=== PATIENT | male | born 1995 | race Caucasian/White ===

== ENCOUNTER → 2023-06-25 11:57 | Outpatient (CLI) | payer OTHER, SELFPAY ==
[2023-06-25 13:07] LABS: Add Manual Diff / Slide Review NO; Basophils Absolute Auto 0 /uL (0-100); Basophils Percent Auto 0.4 % (0-2); Eosinophils Absolute Auto 200 /uL (0-450); Eosinophils Percent Auto 2.4 % (2-4); Hemoglobin 14.7 g/dL (13.5-17.5); Lymphocytes Absolute Auto 2400 /uL (1100-4500); Lymphocytes Percent Auto 29.4 % (25-40); Mean Corpuscular HGB Conc 34.2 % (30-36); Mean Corpuscular Hemoglobin 29.9 PG (26-34); Mean Corpuscular Volume 87.4 fL (80-100); Monocytes Absolute Auto 1000 /uL (0-900); Monocytes Percent Auto 11.5 % (3-14); Neutrophils Absolute Auto 4700 /uL (1500-7000); Neutrophils Percent Auto 56.3 % (50-75); Platelet Count 271 X10^3/uL (150-400); Red Blood Cell Count 4.92 X10^6/uL (4.5-5.9); Red Cell Distribution Width 13.2 % (11.6-14.8); White Blood Cell Count 8.3 X10^3/uL (4.5-11.0)
[2023-06-25 13:34] LABS: Alanine Aminotransferase 35 IU/L (<50); Albumin 4.8 g/dL (3.5-5.0); Albumin Globulin Ratio 1.5 (1.0-2.8); Alkaline Phosphatase 94 U/L (38-126); Aspartate Aminotransferase 26 IU/L (17-59); BUN Creatinine Ratio 18.1 (6-22); Bilirubin Total 0.5 mg/dL (0.2-1.3); Blood Urea Nitrogen 17 mg/dL (9-20); Calcium 9.6 mg/dL (8.4-10.2); Carbon Dioxide 27 mmol/L (22-32); Chloride 102 mmol/L (98-107); Estimated Glomerular Filt Rate > 60 mL/min (>60); Globulin 3.3 g/dL (1.7-4.1); Glucose 109 mg/dL (70-100); HEMOLYSIS < 15 (0-50); Sodium 141 mmol/L (137-145); Total Protein 8.1 g/dL (6.3-8.2)
[2023-06-25 14:05] LABS: TSH w/ Reflex to FT4 1.84 uIU/mL (0.47-4.68)
[2023-06-25 14:33] LABS: Urine Chlamydia NOT DETECTED; Urine N gonorrhoeae NOT DETECTED
[2023-06-25 15:49] LABS: Vitamin D 25 Hydroxy (D3) 28.6 ng/mL (30.0-100.0)
[2023-06-27 18:09] LABS: HIV 1 & 2 Ab/Ag 4th Gen Combo NEGATIVE (NEGATIVE); Hep C Virus Ab w/Reflex Quant NEGATIVE s/c (NEGATIVE)
== END ==
LOC: LAB 11:58
PROVIDERS: PCP Family Medicine; Referring Provider Family Medicine; Visit Provider Family Medicine
DX: Z00.00 Encounter for general adult medical examination without abnormal findings (principal)
CPT/HCPCS: 36415; 80053; 82306; 84443; 85025; 86803; 87389; 87491; 87591